=== PATIENT | male | born 1990 | race Hispanic/Latino ===

== ENCOUNTER 2023-02-19 23:42 | Emergency (ER) | payer OTHER ==
[~2023-02-19] VITALS: Ht 167.6 cm; Wt 90.7 kg
[2023-02-20] MEDS ORDERED: MUPI22OI2 TP (00:24)
[2023-02-20 00:49] VITALS: BP 130/74; PULSE 78; RESP 20; O2SAT 99
== END 2023-02-20 00:54 | disposition home or self-care (01) ==
LOC: EDH 23:42
DX: S00.411A Abrasion of right ear, initial encounter (principal); S09.90XA Unspecified injury of head, initial encounter; W21.07XA Struck by softball, initial encounter; Y93.89 Activity, other specified; Y92.89 Other specified places as the place of occurrence of the external cause; Y99.8 Other external cause status